=== PATIENT | male | born 1990 | race Caucasian/White ===

== ENCOUNTER 2022-09-17 23:01 | Emergency (ER) | payer MEDICAID, OTHER ==
[~2022-09-17] VITALS: Ht 190.5 cm; Wt 74.8 kg
--- NOTE | 2022-09-17 23:12 | NUR ---
DR Guadarrama at bedside, MSE in progress
[2022-09-17] MEDS ORDERED: IV NORMAL SALINE 1000 ML BAG IV ONE (23:15)
[2022-09-17] MEDS ORDERED: SWABABLE VALVE TRANSFER SET EA MC ONE (23:29)
[2022-09-17] MEDS ORDERED: IOHEXOL 350 100 ML INFUS..BTL ONE (23:30)
--- NOTE | 2022-09-17 23:30 | NUR ---
Patient taken to CT via gurney, monitor placed. accompanied by Brent parrish and RN
--- NOTE | 2022-09-17 23:33 | NUR ---
[facility]rology Med consult request activated.
[2022-09-17 23:39] LABS: HEMATOCRIT 39.9 % (36.7-47.1); MEAN CORPUSCULAR HEMOGLOBIN 28.5 uug (23.8-33.4); MEAN CORPUSCULAR VOLUME 83.9 fL (73.0-96.2); PLATELET COUNT (AUTO) 276 K/uL (152-348)
[2022-09-17 23:49] LABS: POTASSIUM 3.5 mmol/L (3.5-5.1)
[2022-09-17 23:59] LABS: THYROID STIMULATING HORMONE 0.499 mIU/mL (0.358-3.740)
[2022-09-18 00:03] LABS: BILIRUBIN,TOTAL 0.2 mg/dL (0.2-1.0); MAGNESIUM 2.2 mg/dL (1.8-2.4); PHOSPHOROUS 3.1 mg/dL (2.5-4.9); TOTAL PROTEIN, SERUM 7.7 g/dL (6.4-8.2)
--- NOTE | 2022-09-18 00:05 | NUR ---
Pt back to ER from CT.
--- NOTE | 2022-09-18 00:08 | NUR ---
Gregorio bernabe in [facility] - 09/18/22 at 0011 by MIRNA ZAYRA campos in progress
--- NOTE | 2022-09-18 00:16 | NUR ---
Dr. Salmon speaking with Dr. Nolan Steven teleneurology.
[2022-09-18 00:36] LABS: *BILIRUBIN,URIN NEGATIVE (NEGATIVE); *BLOOD, URINE NEGATIVE (NEGATIVE); *CLARITY,URINE CLEAR (CLEAR); *COLOR,URINE YELLOW (YELLOW); *KETONES,URINE NEGATIVE (NEGATIVE); *UROBILINOGEN,URINE 0.2 E.U./dl (NORMAL); LEUKOCYTE ESTERASE ,URINE NEGATIVE (NEGATIVE); NITRITE, URINE NEGATIVE (NEGATIVE); UGLUCOSE NEGATIVE (NEGATIVE)
[2022-09-18] MEDS ORDERED: METOCLOPRAMIDE HCL 10 MG/2 ML VIAL ONE (00:43)
[2022-09-18] MEDS ORDERED: MECLIZINE HCL 25 MG TABLET ONE (00:43)
[2022-09-18] MEDS ORDERED: LORAZEPAM 2 MG/1 ML VIAL ONE (00:44)
[2022-09-18] MEDS ORDERED: METOCLOPRAMIDE HCL 10 MG/2 ML VIAL IV ONE (00:45)
[2022-09-18] MEDS ORDERED: MECLIZINE HCL 25 MG TABLET PO ONE (00:45)
[2022-09-18] MEDS ORDERED: LORAZEPAM 2 MG/1 ML VIAL IM ONE (00:45)
[2022-09-18 00:51] LABS: *AMPHETAMINE, URINE NEGATIVE (NEGATIVE); *CANNABINOID, URINE NEGATIVE (NEGATIVE); *COCCAINE, URINE NEGATIVE (NEGATIVE); *PHENCYCLIDINE SCREEN,URINE NEGATIVE (NEGATIVE)
[2022-09-18 02:26] LABS: MEAN CORPUSCULAR HEMOGLOBIN 28.7 uug (23.8-33.4); MEAN CORPUSCULAR VOLUME 84.3 fL (73.0-96.2); PLATELET COUNT (AUTO) 228 K/uL (152-348)
--- NOTE | 2022-09-18 02:27 | NUR ---
Patient does not wish to proceed with medical care recommended by Dr. Salmon. Patient given information related to possible complications, up to and including , which could occur as a result of leaving the hospital at this time. Patient verbalizes understanding of risks involved due to leaving against medical advice. Patient has signed AMA form.
[2022-09-18 02:29] VITALS: BP 125/74
== END 2022-09-18 02:45 | disposition admitted as inpatient to this hospital (09) ==
LOC: ER 23:01
DX: R42 Dizziness and giddiness (principal)
CPT/HCPCS: 80053; 83735; 84100; 84443; 85025 ×2; 85730; 84484 ×2; 36415 ×2; 93005; 71045; 70450; 70496; 70498; 99285; 96361; 83605 ×2; 80320; 80307; 81003; 82248; 96374; 96372; Q9967; J2060; J2765; J7040 ×2; A4663; G0480; J8597

== ENCOUNTER 2022-11-02 02:19 | Emergency (ER) | payer MEDICAID, OTHER ==
[~2022-11-02] VITALS: Ht 190.5 cm; Wt 79.4 kg
[2022-11-02 02:48] VITALS: O2SAT 99
[2022-11-02] MEDS ORDERED: KETOROLAC TROMETHAMINE 60 MG INJ IM ONE ×2 (03:30→03:34)
[2022-11-02] MEDS ORDERED: METOCLOPRAMIDE HCL 10 MG/2 ML VIAL IM ONE (03:30)
[2022-11-02] MEDS ORDERED: METOCLOPRAMIDE HCL 10 MG/2 ML VIAL ONE (03:34)
[2022-11-02 04:13] LABS: HEMATOCRIT 41.1 % (36.7-47.1); MEAN CORPUSCULAR HEMOGLOBIN 28.5 uug (23.8-33.4); MEAN CORPUSCULAR VOLUME 83.8 fL (73.0-96.2); PLATELET COUNT (AUTO) 251 K/uL (152-348)
[2022-11-02 04:14] LABS: *BILIRUBIN,URIN NEGATIVE (NEGATIVE); *BLOOD, URINE NEGATIVE (NEGATIVE); *CLARITY,URINE CLEAR (CLEAR); *COLOR,URINE YELLOW (YELLOW); *KETONES,URINE NEGATIVE (NEGATIVE); *UROBILINOGEN,URINE 0.2 E.U./dl (NORMAL); LEUKOCYTE ESTERASE ,URINE NEGATIVE (NEGATIVE); NITRITE, URINE NEGATIVE (NEGATIVE); PH,URINE 6.5 (5.0-8.0); UGLUCOSE NEGATIVE (NEGATIVE)
[2022-11-02 04:26] LABS: CARBON DIOXIDE 26 mmol/L (21-32); CHLORIDE 104 mmol/L (98-107); CREATININE 0.9 mg/dL (0.6-1.3); POTASSIUM 3.7 mmol/L (3.5-5.1); UREA NITROGEN, BLOOD 23 mg/dL (7-18)
[2022-11-02 04:37] LABS: *AMPHETAMINE, URINE NEGATIVE (NEGATIVE); *CANNABINOID, URINE NEGATIVE (NEGATIVE); *COCCAINE, URINE NEGATIVE (NEGATIVE); *PHENCYCLIDINE SCREEN,URINE NEGATIVE (NEGATIVE)
[2022-11-02 04:41] LABS: ALANINE AMINOTRANSFERASE 34 U/L (16-63); ALKALINE PHOSPHATASE 57 U/L (50-136); ASPARTATE AMINOTRANSFERASE 11 U/L (15-37); BILIRUBIN,DIRECT 0.1 mg/dL (0.0-0.2); BILIRUBIN,TOTAL 0.3 mg/dL (0.2-1.0); TOTAL PROTEIN, SERUM 7.5 g/dL (6.4-8.2)
--- NOTE | 2022-11-02 05:15 | NUR ---
Patient walked out of ER and stated "I want to leave and come back for the result." Patient was encourage to states to wait for result of all the test and have ERMD re eval patient with all the result. Patient came back to room 3 and agreed to to wait for blair result.
--- NOTE | 2022-11-02 05:25 | NUR ---
Patient eloped from facility. ER physician notified.
== END 2022-11-02 06:20 | disposition left against medical advice (07) ==
LOC: ER 02:23
DX: R51.9 Headache, unspecified (principal); R42 Dizziness and giddiness; R07.89 Other chest pain
CPT/HCPCS: 80076; 80048; 81003; 85025; 84484; 36415; 93005; 71045; 70450; 99285; 96372 ×2; 80320; 80307; J1885; J2765; A4663; G0480